=== PATIENT | female | born 2000 | race African-American/Black ===

== ENCOUNTER 2023-03-02 03:18 | Emergency (ER) | payer OTHER, SELFPAY ==
--- NOTE | ~2023-03-02 | US_ITS ---
EXAMINATION: US PELVIS CLINICAL INFORMATION: Pelvic pain, menorrhagia The patient reports bleeding on and off since July 2022 COMPARISON: None available. TECHNIQUE: Ultrasound of the pelvis is performed using both transabdominal and transvaginal transducers along with Doppler. Transvaginal imaging is performed due to inadequate visualization transabdominally. FINDINGS: Uterus: The uterus is anteverted and measures 8.8 x 4.0 x 4.8 cm. The myometrium is heterogeneous and hyperemic. The endometrial thickness is 0.6 mm. Adnexa: Both ovaries are visualized. There is normal color flow to the adnexa. There is no ovarian torsion. There is no pelvic ascites or fluid collection. Right ovary measures 5.5 x 2.2 x 3.8 cm. Volume 23.2 mL Left ovary measures 3.8 x 2.0 x 2.6 cm. Volume 10.4 mL. Several subcentimeter peripheral follicles are noted. US/US pelvic and transvaginal IMPRESSION: 1. The myometrium is heterogeneous and hyperemic. 2. Bilaterally enlarged ovaries with several subcentimeter peripheral follicles noted in the left ovary. These findings raise concern regarding polycystic ovary syndrome.
[2023-03-02 03:22] VITALS: BP 147/76; PULSE 61; RESP 18; TEMP 36.1; O2SAT 98; BMI 30.3
[2023-03-02 04:16] LABS: Hematocrit 32.4 % (37.0-47.0); Hemoglobin 10.5 g/dl (12.0-16.0); Mean Corpuscular HGB Conc 32.4 g/dl (31.0-35.0); Mean Corpuscular Hemoglobin 32.5 pg (27.0-33.0); Mean Corpuscular Volume 100.3 fL (80.0-98.0); Mean Platelet Volume 9.1 fL (9.4-12.3); Platelet Count 289 X10*3/uL (160-400); Red Blood Count 3.23 X10*6/uL (4.20-5.50); Red Cell Distribution Width 13.2 % (11.0-16.0); White Blood Count 11.3 X10*3/uL (4.8-10.8)
[2023-03-02 04:33] LABS: Alanine Aminotransferase 12 U/L (0-31); Alkaline Phosphatase 49 U/L (39-117); Anion Gap 11 (12-20); Aspartate Amino Transferase 13 U/L (5-31); Bilirubin Total 0.3 mg/dL (0.0-1.0); Blood Urea Nitrogen 7 mg/dL (9-16); Carbon Dioxide 21 mmol/L (22-29); Chloride 110 mmol/L (96-108); Estimated Glomerular Filt Rate > 60; Glucose Random 110 mg/dL (60-115); Lipase 13 U/L (8-78); Potassium 3.4 mmol/L (3.3-5.1); Sodium 139 mmol/L (135-145); Total Protein 7.6 g/dL (6.5-8.0)
[2023-03-02 06:02] VITALS: BP 128/69; PULSE 88; RESP 14; TEMP 36.9; O2SAT 100
[2023-03-02 06:11] LABS: Appearance Urine Cloudy; Color Urine Yellow; Glucose Urine UA Negative (Negative); Leukocyte Esterase Urine Large (3+) (Negative); Nitrite Urine Negative (Negative); Specific Gravity - Urine >= 1.030 (1.005-1.025); UMIC TRIGGER UACC YES; Urine Blood Large (3+) (Negative); Urine Ketones Trace mg/dL (Negative); Urine Protein 100 (2+) mg/dL (Neg-Trace)
[2023-03-02 06:12] LABS: UPreg QC Valid YES; Urine Pregnancy NEGATIVE (NEGATIVE)
[2023-03-02 06:16] LABS: Bacteria Urine Trace (None Seen); Hyaline Casts Urine 0-2 /LPF (0-2); RBC Urine >20 /HPF (0-2); Squamous Epithelial Cell Urine 0-2 /HPF (0-2); UACC Culture Trigger YES; WBC Urine >50 /HPF (0-5)
[2023-03-02 07:03] VITALS: BP 118/76; PULSE 81; RESP 12; TEMP 36.8; O2SAT 99
[2023-03-02] MEDS: Acetaminophen 325 MG TABLET 975 MG PO (07:53)
[2023-03-02] MEDS: Ibuprofen 400 MG TABLET PO (07:53)
--- NOTE | 2023-03-02 08:59 | ED_ITS ---
HPI - Abdominal Pain General Chief Complaint: Abdominal Pain Stated Complaint: Pelvic pain Time Seen by Provider: 03/02/23 07:07 Source: patient Mode of arrival: ambulatory History of Present Illness HPI narrative: 23-year-old female who reports vaginal bleeding since July and is currently on her menstrual cycle and has been followed by Gynecology at [facility]. She states that she has always had heavy. She denies any dizziness/headache/shortness of breath your heart palpitations. Patient states she has an up-to-date pelvic exam and was recently on 2 months of control, but she states the did not help at all and she stopped the control 2 days ago. Related Data Allergies Allergy/AdvReac Type Severity Reaction Status Date / Time Seasonal Allergies AdvReac Itching Verified 03/02/23 03:26 Review of Systems Review of Systems Pertinent positives and negatives as stated in HPI PMFSH Past Medical History Source: nursing notes reviewed Social History Social History Smoked in Last 30 Days: No Use of substances other than those prescribed or required for medical reasons: No Substance Use Type: Marijuana Advance Directives: No Advance Directives Information Provided: Yes Patient : No Physical Exam ED Vital Signs: Vital Signs - 24 hr 03/02/23 03:22 03/02/23 06:02 03/02/23 07:03 Temperature 97.0 F 98.5 F 98.2 F Pulse Rate 61 88 81 Respiratory Rate 18 14 12 Blood Pressure 147/76 H 128/69 118/76 Pulse Oximetry 98 100 99 Oxygen Delivery Method Room Air Room Air Room Air BMI result Body Mass Index 30.3 VITAL SIGNS: Reviewed. GENERAL: Well developed, well nourished, in no acute distress. HEAD: Normocephalic/atraumatic EYES: PERRLA, EOMI EARS: Ext canals without abnormality NOSE: Nares patent bilateral OROPHARYNX: no oral lesions noted, posterior pharynx clear NECK: Supple, no adenopathy LUNGS: Normal breath sounds. No adventitious sounds or accessory muscle use. SpO2<99> CARDIOVASCULAR: Regular rate and rhythm without noted murmurs ABDOMEN: Soft, non-tender, non-distended with bowel sounds. MUSCULOSKELETAL: No tenderness, deformities, or effusions noted on gross inspection. EXTREMITIES: No cyanosis, clubbing or edema. SKIN: Inspection of the skin reveals no rashes NEUROLOGIC: Alert and oriented x 4. Strength and sensation to light touch were grossly intact x 4. Medical Decision Making Medical Decision Making [facility] Narrative: 23-year-old female with history and clinical presentation, DX: Menorrhagia, fibroids, dysmenorrhea, ectopic, urinary tract infection. I reviewed all investigations and there is a stress leukocytosis, no thrombocytopenia the macrocytic anemia. Chemistry indices do not demonstrates MARIBETH and there is no electrolyte/liver enzyme derangements. Urinalysis is reflective of patient's current menstrual cycle. Urine is negative. Ultrasound demonstrates a heterogeneous and hyperemic findings and suspicion of PCOS, otherwise no mention of fibroids. There is also the possibility that patient may have a component of endometriosis. My interpretation is that patient is experiencing menorrhagia and will be given a referral to both hematology for further evaluation of hematologic studies as well as a referral to Gynecology but she has been informed that these also require additional primary care provider referrals for completion. She is asymptomatic for the anemia and has been provided with combination analgesics for pain control. Differential Diagnosis Differential Diagnoses: The differential diagnosis associated with the presentation includes Please see the discussion above Admission/Observation Consideration of admission/observation: Escalation of care including admission/observation considered Please see the discussion above Lab Data [facility] Lab Attestation statement: I reviewed the patient's lab results. Please see the discussion above 03/02/23 04:07 03/02/23 04:07 Labs: Lab Results 03/02/23 03/02/23 Range/Units 04:07 06:05 WBC 11.3 H (4.8-10.8) X10*3/uL RBC 3.23 L (4.20-5.50) X10*6/uL Hgb 10.5 L (12.0-16.0) g/dl Hct 32.4 L (37.0-47.0) % MCV 100.3 H (80.0-98.0) fL MCH 32.5 (27.0-33.0) pg MCHC 32.4 (31.0-35.0) g/dl RDW 13.2 (11.0-16.0) % Plt Count 289 (160-400) X10*3/uL MPV 9.1 L (9.4-12.3) fL Absolute Nucleated RBC 0.000 (0.0-0.012) X10*3/uL Nucleated RBC % (auto) 0.0 (0.0-0.2) /100WBC Sodium 139 (135-145) mmol/L Potassium 3.4 (3.3-5.1) mmol/L Chloride 110 H (96-108) mmol/L Carbon Dioxide 21 L (22-29) mmol/L Anion Gap 11 L (12-20) BUN 7 L (9-16) mg/dL Creatinine 0.78 (0.5-1.4) mg/dL Estim Creat Clear Calc 120.0 Estimated GFR > 60 Random Glucose 110 (60-115) mg/dL Calcium 9.0 (8.4-10.2) mg/dL Total Bilirubin 0.3 (0.0-1.0) mg/dL AST 13 (5-31) U/L ALT 12 (0-31) U/L Alkaline Phosphatase 49 (39-117) U/L Total Protein 7.6 (6.5-8.0) g/dL Albumin 4.0 (3.5-5.0) g/dL Lipase 13 (8-78) U/L Urine Color Yellow Urine Appearance Cloudy Urine pH 6.0 (5.0-9.0) Ur Specific [place] >= 1.030 H (1.005-1.025) Urine Protein 100 (2+) H (Neg-Trace) mg/dL Urine Glucose (UA) Negative (Negative) mg/dL Urine Ketones Trace (Negative) mg/dL Urine Blood Large (3+) H (Negative) Urine Nitrite Negative (Negative) Ur Leukocyte Esterase Large (3+) H (Negative) Urine RBC >20 H (0-2) /HPF Urine WBC >50 H (0-5) /HPF Ur Squamous Epith Cells 0-2 (0-2) /HPF Urine Bacteria Trace (None Seen) Hyaline Casts 0-2 (0-2) /LPF Urine Test NEGATIVE (NEGATIVE) Medications Administered Discontinued Medications Generic Name Dose Route Start Last Admin Trade Name Freq PRN Reason Stop Dose Admin Acetaminophen 975 mg 03/02/23 07:42 03/02/23 07:53 Acetaminophen 325 Mg Tablet PO 03/02/23 07:43 975 mg ONCE ONE Administration Ibuprofen 400 mg 03/02/23 07:42 03/02/23 07:53 Ibuprofen 400 Mg Tablet PO 03/02/23 07:43 400 mg ONCE ONE Administration Critical Care Time Critical Care Time Critical Care Time: Yes Total Critical Care Time: 30 Attestation: I personally attest to this time spent taking care of the patient. Discharge Plan Discharge Clinical Impression: Menorrhagia, Dysmenorrhea, Anemia, macrocytic Patient Disposition: Home, Self-Care Instructions: Dysfunctional Uterine Bleeding (ED), Dysmenorrhea (ED), Menorrhagia (ED), Anemia (ED) Additional Instructions: 1. Recommend [id number] Tylenol/ibuprofen as needed for pain control. 2. You have been provided with a referral to Hematology for further evaluation of your anemia studies, you have also been given a referral to gynecology. You will need to get a primary care provider referral on top of these referrals. Please give the office is a call because they may still give you an appointment even if you do not have a primary care provider referral. Return to the ER for any worsening of your symptoms. Referrals: Yaneth Anderson MD [Physician] - Christiano Denise MD [Physician] -
[2023-03-02 09:43] LABS: Iron 12 mcg/dL (30-160); Percent Iron Saturation 6 % (15-50); Total Iron Binding Capacity 218 mcg/dL (228-428); Unsaturated Iron Binding 206 ug/dL
== END 2023-03-02 09:39 | disposition home or self-care (01) ==
PROVIDERS: Emergency Provider Student in an Organized Health Care Education/Training Program
DX: N92.0 Excessive and frequent menstruation with regular cycle (principal); N94.6 Dysmenorrhea, unspecified; D53.9 Nutritional anemia, unspecified; R10.2 Pelvic and perineal pain
CPT/HCPCS: 36415; 76830; 76856; 80053; 81001; 81025; 83540; 83690; 85027; 87086; 87147; 99284

== ENCOUNTER 2024-06-03 08:14 | Emergency (ER) | payer OTHER, SELFPAY ==
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
[2024-06-03 08:18] VITALS: BP 132/76; PULSE 104; RESP 20; TEMP 36.7; O2SAT 98; BMI 30.7
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
[2024-06-03] MEDS: Acetaminophen 325 MG TABLET 650 MG PO (09:34)
[2024-06-03 09:45] LABS: Appearance Urine Cloudy; Color Urine Yellow; Glucose Urine UA Negative (Negative); Leukocyte Esterase Urine Negative (Negative); Nitrite Urine Negative (Negative); PH 5.5 (5.0-9.0); Specific Gravity - Urine 1.025 (1.005-1.025); Urine Blood Negative (Negative); Urine Ketones Negative (Negative); Urine Protein Trace mg/dL (Neg-Trace)
[2024-06-03 09:50] LABS: UPreg QC Valid YES; Urine Pregnancy NEGATIVE (NEGATIVE)
[2024-06-03 09:58] LABS: Bacteria Urine Trace (None Seen); Hyaline Casts Urine 0-2 /LPF (0-2); RBC Urine 0-2 /HPF (0-2); UACC Culture Trigger YES
[2024-06-03 12:16] VITALS: BP 128/78; PULSE 100; RESP 16; TEMP 36.7; O2SAT 96
[2024-06-03 12:18] VITALS: BP 128/78; PULSE 100; RESP 16; TEMP 36.7; O2SAT 96
== END 2024-06-03 12:18 | disposition home or self-care (01) ==
PROVIDERS: Registered Nurse Emergency; Emergency Provider Emergency Medicine
DX: S09.90XA Unspecified injury of head, initial encounter (principal); S60.051A Contusion of right little finger without damage to nail, initial encounter; S50.01XA Contusion of right elbow, initial encounter; Y04.2XXA Assault by strike against or bumped into by another person, initial encounter; H92.02 Otalgia, left ear; M25.521 Pain in right elbow; M25.562 Pain in left knee; M25.561 Pain in right knee; R51.9 Headache, unspecified; Y93.89 Activity, other specified; Y92.414 Local residential or business street as the place of occurrence of the external cause; Y99.9 Unspecified external cause status
CPT/HCPCS: 70450; 70486; 72125; 73070; 73140; 73564; 81001; 81025; 87086; 99284

== ENCOUNTER → 2024-06-03 09:15 | Outpatient (BNV) | payer OTHER, SELFPAY | PROVIDERS: Emergency Provider Emergency Medicine; Visit Provider Radiology Diagnostic Radiology | DX: S80.01XA Contusion of right knee, initial encounter (principal); S80.02XA Contusion of left knee, initial encounter; S50.02XA Contusion of left elbow, initial encounter; S60.00XA Contusion of unspecified finger without damage to nail, initial encounter; S00.93XA Contusion of unspecified part of head, initial encounter | CPT/HCPCS: 70450; 70486; 72125; 73070; 73140; 73564 ==

== ENCOUNTER 2024-06-26 12:09 | Emergency (ER) | payer OTHER, SELFPAY ==
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
[2024-06-26 12:17] VITALS: BP 145/89; PULSE 80; RESP 16; TEMP 36.6; O2SAT 100; BMI 29.0
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
== END 2024-06-26 20:42 | disposition left against medical advice (07) ==
PROVIDERS: Emergency Provider Emergency Medicine
DX: Z04.1 Encounter for examination and observation following transport accident (principal); M25.561 Pain in right knee; R07.9 Chest pain, unspecified; G43.909 Migraine, unspecified, not intractable, without status migrainosus
CPT/HCPCS: 70450; 71046; 72125; 73562; 99281; 99284

== ENCOUNTER → 2024-06-26 12:19 | Outpatient (BNV) | payer OTHER, SELFPAY | PROVIDERS: Visit Provider Radiology Diagnostic Radiology | DX: M25.561 Pain in right knee (principal); R07.9 Chest pain, unspecified; R51.9 Headache, unspecified | CPT/HCPCS: 70450; 71046; 72125; 73562 ==

== ENCOUNTER 2025-02-27 09:42 | Emergency (ER) | payer OTHER, SELFPAY ==
--- NOTE | ~2025-02-27 | US_ITS ---
EXAMINATION: US PELVIS CLINICAL INFORMATION: Pelvic pain. Abnormal uterine bleeding. COMPARISON: Previous pelvic ultrasound February 2023 TECHNIQUE: Ultrasound of the pelvis is performed using both transabdominal and transvaginal transducers along with Doppler. Transvaginal imaging is performed due to inadequate visualization transabdominally. Doppler and color evaluation of the ovarian vessels with waveform spectral analysis. FINDINGS: Uterus: The uterus is anteverted and measures 7.6 x 3.6 x 4.1 cm. The double wall endometrial thickness is 3 mm. No endometrial fluid or mass. The uterus is smooth in contour and has normal myometrial echogenicity. No visible fibroid. Adnexa: Both ovaries are visualized. There is normal color flow to the adnexa. There is no ovarian torsion. Small amount of ascites. Right ovary measures 4.8 x 2.9 x 2.8 cm. Slightly enlarged with multiple small simple cysts or follicles/ polycystic appearance. Left ovary measures 5.1 x 2.8 x 3 cm. Slightly enlarged with multiple small simple cysts or follicles/ polycystic appearance. US/US pelvic and transvaginal IMPRESSION: Polycystic appearance of the ovaries. No evidence of torsion. Small amount of fluid in the pelvis. Normal-appearing uterus and endometrium. Electronically signed by: Parisa Antonio MD 02/27/2025 12:09 PM [facility]
--- NOTE | ~2025-02-27 | US_ITS ---
EXAMINATION: US PELVIS CLINICAL INFORMATION: Pelvic pain. Abnormal uterine bleeding. COMPARISON: Previous pelvic ultrasound February 2023 TECHNIQUE: Ultrasound of the pelvis is performed using both transabdominal and transvaginal transducers along with Doppler. Transvaginal imaging is performed due to inadequate visualization transabdominally. Doppler and color evaluation of the ovarian vessels with waveform spectral analysis. FINDINGS: Uterus: The uterus is anteverted and measures 7.6 x 3.6 x 4.1 cm. The double wall endometrial thickness is 3 mm. No endometrial fluid or mass. The uterus is smooth in contour and has normal myometrial echogenicity. No visible fibroid. Adnexa: Both ovaries are visualized. There is normal color flow to the adnexa. There is no ovarian torsion. Small amount of ascites. Right ovary measures 4.8 x 2.9 x 2.8 cm. Slightly enlarged with multiple small simple cysts or follicles/ polycystic appearance. Left ovary measures 5.1 x 2.8 x 3 cm. Slightly enlarged with multiple small simple cysts or follicles/ polycystic appearance. US/US pelvic ovarian doppler IMPRESSION: Polycystic appearance of the ovaries. No evidence of torsion. Small amount of fluid in the pelvis. Normal-appearing uterus and endometrium. Electronically signed by: Parisa Antonio MD 02/27/2025 12:09 PM [facility]
[2025-02-27 09:44] VITALS: BP 131/73; PULSE 86; RESP 20; TEMP 36.1; O2SAT 99; BMI 36.3
[2025-02-27 10:02] LABS: MANUAL DIFF FLAG NO
[2025-02-27 10:03] LABS: Hematocrit 34.4 % (37.0-47.0); Hemoglobin 11.3 g/dl (12.0-16.0); Imm Gran Abs Auto 0.02 X10*3/uL (0.00-0.03); Imm Gran Pct Auto 0.3 % (0.0-0.4); Lymphocytes Absolute Auto 1.9 X10*3/uL (1.2-4.9); Mean Corpuscular HGB Conc 32.8 g/dl (31.0-35.0); Mean Corpuscular Hemoglobin 34.3 pg (27.0-33.0); Mean Corpuscular Volume 104.6 fL (80.0-98.0); NRBC Abs Auto 0.000 X10*3/uL (0.0-0.012); NRBC Pct Auto 0.0 /100WBC (0.0-0.2); Platelet Count 306 X10*3/uL (160-400); Red Blood Count 3.29 X10*6/uL (4.20-5.50); White Blood Count 7.4 X10*3/uL (4.8-10.8)
--- NOTE | 2025-02-27 10:04 | PC.NURSE ---
patient a&ox3, vss, pt c/o 12/03 low abd/pelvic pain, labs drawn, pt awaiting provider evaluation, call rollins within reach, plan of care ongoing
[2025-02-27 10:32] LABS: Alanine Aminotransferase 12 U/L (0-31); Albumin Level 4.3 g/dL (3.5-5.0); Alkaline Phosphatase 65 U/L (39-117); Anion Gap 9 (12-20); Aspartate Amino Transferase 19 U/L (5-31); Blood Urea Nitrogen 9 mg/dL (9-16); Calcium 8.7 mg/dL (8.4-10.2); Carbon Dioxide 25 mmol/L (22-29); Chloride 109 mmol/L (96-108); Creatinine Clr Calc Pharmacy 160.4; Estimated Glomerular Filt Rate > 60; Lipase 14 U/L (8-78); Potassium 3.7 mmol/L (3.3-5.1); Sodium 139 mmol/L (135-145); Total Protein 7.1 g/dL (6.5-8.0)
--- OUTSIDE RECORDS SUMMARY | 2025-02-27 11:54 | XMS_ITS | Clinical Summary ---
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 Name Role Phone Unavailable Primary Care Provider Unavailabl e Social History Tobacco Use Types Packs/Day Years Used Date Smoking Tobacco: Never Assessed Comments Unknown Sex and Gender Information Value Date Recorded Sex Assigned at Not on file Legal Sex Female 3:42 PM EDT Gender Identity Not on file Sexual Orientation Not on file Plan of Treatment Health Maintenance Due Date Last Done Comments Gonorrhea/Chlamydia Screening 2001 HPV Vaccines (1 - 3-dose series) 01/24/2016 DTaP,Tdap,and Td Vaccines (1 - Tdap) 01/24/2020 Hepatitis B Vaccines (1 of 3 - 19+ 3-dose series) 01/24/2020 Cervical Cancer Screening: P ap Smear 2022 HIV Screening 02/03/2024 Hepatitis C Screening 02/03/2024 Social Influencers of Health Screening 02/03/2024 Depression Screening 04/26/2024 COVID-19 Vaccine (1 - 2023-2 5 season) 2024 Influenza Vaccine (#1) 2024 RSV Immunization Adult Patie nts (1 - 1-dose 75+ series) 01/24/2076 HIB Vaccines Aged Out No longer eligi ble based on patient's age to complete this topic Hepatitis A Vaccines Aged Out No long er eligible based on patient's age to complete this topic IPV Vaccines Aged Out No longer eligi ble based on patient's age to complete this topic MMR Vaccines Aged Out No longer eligi ble based on patient's age to complete this topic Meningococcal ACWY Vaccine Aged Out N o longer eligible based on patient's age to complete this topic Meningococcal B Vaccine Aged Out No l onger eligible based on patient's age to complete this topic Pneumococcal Vaccine: Pediat rics (0 to 5 Years) and At-Risk Patients (6 to 49 Years) Aged Out No longer eligible b ased on patient's age to complete this topic RSV Immunization Patients Un daysi 20 months Aged Out No longer eligible b ased on patient's age to complete this topic Varicella Vaccines Aged Out No longer eligible based on patient's age to complete this topic
--- NOTE | 2025-02-27 12:25 | ED_ITS ---
HPI - General Chief complaint: Vaginal Bleeding Stated complaint: Abd pain Time Seen by Provider: 02/27/25 10:12 Source: patient and RN notes reviewed Mode of arrival: ambulatory Limitations: no limitations History of Present Illness ED Provider: Mary Carmen Claire PA-C HPI Narrative: This is a 25-year-old female, with a past medical history of abnormal uterine bleeding, who presents emergency department with concerns of vaginal bleeding for the last 3 weeks. Patient states that she has been wearing always pull up adult diapers, going through 3 of them per day, as well as ultra tampons proximally 4-5 per day, and she states that she is often times soaking through them. Patient states that she has a history of abnormal uterine bleeding, however she states that she is unsure what to do as her menses have not stopped. She endorses some hot flashes. She does report [facility], however she does not have a current Ob as of yet. She states that she had an a regular Pap last year, and has a scheduled repeat for March 13. She is not currently sexually active however recently split with her partner several weeks ago. She does endorse some abnormal vaginal discharge which started 2 weeks ago, yellow in color. She denies any fevers, chills, nausea, vomiting, diarrhea. No urinary symptoms. Related Data Previous Rx's ?Medication ?Instructions ?Recorded cyclobenzaprine 10 mg tablet 10 mg PO TID PRN muscle s pasm #10 06/03/24 tabs ibuprofen 600 mg tablet 600 mg PO TID PRN pain #20 t abs 06/03/24 lidocaine 5 % topical patch 1 patch topical DAILY #15 ea 06/03/24 Allergies Allergy/AdvReac Type Severity Reaction Status Date / Time Seasonal Allergies AdvReac Itching Verified 02/27/25 09:47 [facility] Social History Social History Alcohol intake: current Alcohol intake frequency: a few times a month Smoked in Last 30 Days: No Use of substances other than those prescribed or required for medical reasons: No Substance Use Type: Marijuana Advance Directives: No Advance Directives Information Provided: No Do you have a plan to hurt others: No Plan Patient : No Physical Exam 2 Vital Signs: Vital Signs: Last Vital Signs Temp 97.7 F 02/27/25 13:00 Pulse 66 02/27/25 13:00 Resp 17 02/27/25 13:00 BP 121/67 02/27/25 13:00 Pulse Ox 98 02/27/25 13:00 O2 Del Method Room Air 02/27/25 13:00 BMI result Body Mass Index 36.3 Medications Administered Discontinued Medications Generic Name Dose Route Start Last Admin Trade Name Garciaq PRN Reason Stop Dose Admin Ketorolac Tromethamine 15 mg 02/27/25 13:24 02/27/25 13:49 Ketorolac Tromethamine 15 Mg/Ml Vial IM 02/27/25 13:25 15 mg ONCE ONE Administration Medical Decision Making Lab Data 02/27/25 09:57 02/27/25 09:57 Labs: Lab Results 02/27/25 02/27/25 Range/Units 09:57 12:20 WBC 7.4 (4.8-10.8) X10*3/uL RBC 3.29 L (4.20-5.50) X10*6/uL Hgb 11.3 L (12.0-16.0) g/dl Hct 34.4 L (37.0-47.0) % MCV 104.6 H (80.0-98.0) fL MCH 34.3 H (27.0-33.0) pg MCHC 32.8 (31.0-35.0) g/dl RDW 13.0 (11.0-16.0) % Plt Count 306 (160-400) X10*3/uL MPV 8.9 L (9.4-12.3) fL Immature Gran % (Auto) 0.3 (0.0-0.4) % Neut % (Auto) 67.6 (45-73) % Lymph % (Auto) 25.0 (20-40) % Clarke % (Auto) 5.1 (2-11) % Eos % (Auto) 1.7 (0-4) % Baso % (Auto) 0.3 (0-2) % Lymph # (Auto) 1.9 (1.2-4.9) X10*3/uL Clarke # (Auto) 0.4 (0.1-1.2) X10*3/uL Eos # (Auto) 0.1 (0.0-0.4) X10*3/uL Baso # (Auto) 0.0 (0.0-0.2) X10*3/uL Abs Immat Gran (auto) 0.02 (0.00-0.03) X10*3/uL Absolute Neuts (auto) 5.0 (2.0-8.3) x10*3/uL Absolute Nucleated RBC 0.000 (0.0-0.012) X10*3/uL Nucleated RBC % (auto) 0.0 (0.0-0.2) /100WBC Sodium 139 (135-145) mmol/L Potassium 3.7 (3.3-5.1) mmol/L Chloride 109 H (96-108) mmol/L Carbon Dioxide 25 (22-29) mmol/L Anion Gap 9 L (12-20) BUN 9 (9-16) mg/dL Creatinine 0.63 (0.5-1.4) mg/dL Estim Creat Clear Calc 160.4 Estimated GFR > 60 Random Glucose 104 (60-115) mg/dL Calcium 8.7 (8.4-10.2) mg/dL Total Bilirubin 0.4 (0.0-1.0) mg/dL Direct Bilirubin 0.2 (0.0-0.5) mg/dL AST 19 (5-31) U/L ALT 12 (0-31) U/L Alkaline Phosphatase 65 (39-117) U/L Total Protein 7.1 (6.5-8.0) g/dL Albumin 4.3 (3.5-5.0) g/dL Lipase 14 (8-78) U/L Beta HCG, Quant < 2 mIU/mL Urine Color RED Urine Appearance Cloudy Urine pH 6.0 (5.0-9.0) Ur Specific [place] 1.025 (1.005-1.025) Urine Protein 30 (1+) H (Neg-Trace) mg/dL Urine Glucose (UA) Negative (Negative) mg/dL Urine Ketones Negative (Negative) mg/dL Urine Blood Large (3+) H (Negative) Urine Nitrite Negative (Negative) Ur Leukocyte Esterase Negative (Negative) Urine RBC >20 H (0-2) /HPF Urine WBC 0-5 (0-5) /HPF Ur Squamous Epith Cells 3-5 (0-2) /HPF Urine Bacteria None Seen (None Seen) Hyaline Casts 0-2 (0-2) /LPF Discharge Plan Discharge Prescriptions: No Action cyclobenzaprine 10 mg tablet 10 mg PO TID PRN (Reason: muscle spasm) Qty: 10 0RF ibuprofen 600 mg tablet 600 mg PO TID PRN (Reason: pain) Qty: 20 0RF lidocaine 5 % adhesive patch,medicated 1 patch topical DAILY Qty: 15 0RF Rx Instructions: leave on most painful area for up to 12 hrs Print Language: Latvian
[2025-02-27 12:37] LABS: Appearance Urine Cloudy; Glucose Urine UA Negative (Negative); PH 6.0 (5.0-9.0); UMIC TRIGGER UACC YES
[2025-02-27 12:44] LABS: Specific Gravity - Urine 1.025 (1.005-1.025)
[2025-02-27 13:00] VITALS: BP 121/67; PULSE 66; RESP 17; TEMP 36.5; O2SAT 98
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
[2025-02-27 14:05] LABS: Bacterial Vaginosis PCR POSITIVE (Negative); Candida Group PCR NOT DETECTED (Not Detect); Candida glab krusei PCR NOT DETECTED (Not Detect); Trichomonas vaginalis PCR DETECTED (Not Detect)
--- NOTE | 2025-02-27 14:07 | ED.FEMALEGU ---
HPI - Female Genitourinary General Chief complaint: Vaginal Bleeding Stated complaint: Abd pain Time Seen by Provider: 02/27/25 10:12 Source: patient and RN notes reviewed Mode of arrival: ambulatory Limitations: no limitations History of Present Illness ED Provider: Mary Carmen Claire PA-C HPI Narrative: This is a 25-year-old female, with a past medical history of abnormal uterine bleeding, who presents emergency department with concerns of vaginal bleeding for the last 3 weeks. Patient states that she has been wearing always pull up adult diapers, going through 3 of them per day, as well as ultra tampons proximally 4-5 per day, and she states that she is often times soaking through them. Patient states that she has a history of abnormal uterine bleeding, however she states that she is unsure what to do as her menses have not stopped. She endorses some hot flashes. She does report that she has been receiving OB care through [facility], however she does not have a current Ob as of yet. She states that she had an irregular Pap last year, and has a scheduled repeat for March 13 at [facility]. She is not currently sexually active however recently split with her partner several weeks ago. She does endorse some abnormal vaginal discharge which started 2 weeks ago, yellow in color. She denies any fevers, chills, nausea, vomiting, diarrhea. No urinary symptoms. No chest pain, SOB, or dizziness. No other complaints or concerns at this time. MD elicited complaint: vaginal bleeding Onset (ago): week(s) Location of symptoms: suprapubic Severity: moderate Female Urogenital Radiation: Suprapubic Quality of pain: cramping Consistency: constant Vaginal discharge: yellow Vaginal bleeding: heavy, # pads per day (4) and other (4-5 ultra tampons per day ) Exacerbating factors: none Relieving factors: none Associated symptoms: denies other symptoms Treatment prior to arrival: none Sexual activity: No Patient : No Related Data Previous Rx's ?Medication ?Instructions ?Recorded cyclobenzaprine 10 mg tablet 10 mg PO TID PRN muscle spasm #10 06/03/24 tabs ibuprofen 600 mg tablet 600 mg PO TID PRN pain #20 tabs 06/03/24 lidocaine 5 % topical patch 1 patch topical DAILY #15 ea 06/03/24 medroxyprogesterone 10 mg tablet 10 mg PO DAILY #90 tabs 02/27/25 (Provera) metronidazole 500 mg tablet 500 mg PO BID 7 days #13 tabs 02/27/25 Allergies Allergy/AdvReac Type Severity Reaction Status Date / Time Seasonal Allergies AdvReac Itching Verified 02/27/25 09:47 Review of Systems Review of Systems: Constitutional : No Fever, No Chills ENT/Mouth : No sore throat, No Rhinorrhea Eyes: No Eye Pain, No Swelling, No Redness Cardiovascular : No Chest Pain, No SOB Respiratory : No Cough, No Sputum Gastrointestinal : No Nausea, No Vomiting, No Diarrhea, No abdominal Pain Genitourinary : No Dysuria, No Hematuria Musculoskeletal : No joint pain, No Myalgias, No Joint Swelling Skin : No Skin Lesions Neuro : No Weakness, No Numbness, No Headache All other systems reviewed and are negative Yes all other systems are reviewed and are negative Constitutional: Constitutional: Reports as per [facility] Social History Social History Alcohol intake: current Alcohol intake frequency: a few times a month Substance Use Type: Marijuana Physical Exam Vital Signs: Vital Signs: Last Vital Signs Temp 97.7 F 02/27/25 13:00 Pulse 66 02/27/25 13:00 Resp 17 02/27/25 13:00 BP 121/67 02/27/25 13:00 Pulse Ox 98 02/27/25 13:00 O2 Del Method Room Air 02/27/25 13:00 BMI result Body Mass Index 36.3 Const: General: cooperative, comfortable and no acute distress Orientation/consciousness: patient oriented x3 Limitations: no limitations HEENT: Head: Yes normal to inspection, Yes normocephalic and Yes atraumatic Ears: hearing grossly normal bilaterally General nose exam: Normal external nose present Face and sinus: Yes normal facial exam Mouth: Normal oral and palatal mucosa present, oropharynx normal and moist mucous membranes Throat: Yes posterior oropharynx normal Eyes: General: appearance normal, both eyes and all related structures Eyelids: Yes eyelids normal Conjunctivae: conjunctivae normal Sclerae: sclerae normal Pupils: Equal, round and reactive pupils present EOM: EOMs intact bilaterally Neck: Neck: Yes normal visual inspection, Yes full ROM and Yes no lymphadenopathy Lymphatic: no lymphadenopathy noted Chest: Chest palpation & inspection: normal inspection of the chest Resp: Effort & Inspection: normal respiratory effort and able to speak in complete sentences Auscultation: clear to auscultation bilaterally, no crackles, no rales, no rhonchi and no wheezes Cardio: Rate: regular rate Rhythm: regular rhythm Heart sounds: S1 normal heart sound present and S2 normal heart sound present GI: Inspection: Yes normal to inspection : Other: Pelvic examination performed, patient with small amount of bright red blood in vaginal canal, no evidence of hemorrhage. No clots cervical os is closed. No cervical motion tenderness. Speculum Exam - Vagina: normal appearance of the vagina Speculum Exam - Cervix: normal appearance of the cervix Skin: General skin exam: no rashes or lesions noted Trauma: no lacerations or abrasions Wounds: no wounds Neuro: General: patient oriented x3 and moves all extremities Cranial nerves: Yes Equal, round and reactive pupils present Extrem: General: Yes normal to inspection Right upper extremity: normal to inspection Left upper extremity: normal to inspection Right lower extremity: normal to inspection Left lower extremity: normal to inspection Medications Administered Discontinued Medications Generic Name Dose Route Start Last Admin Trade Name Freq PRN Reason Stop Dose Admin Ketorolac Tromethamine 15 mg 02/27/25 13:24 02/27/25 13:49 Ketorolac Tromethamine 15 Mg/Ml Vial IM 02/27/25 13:25 15 mg ONCE ONE Administration Medroxyprogesterone Acetate 10 mg 02/27/25 14:46 02/27/25 15:54 Medroxyprogesterone Acetate 5 Mg Tablet PO 02/27/25 14:47 Not Given ONCE ONE Metronidazole 500 mg 02/27/25 14:46 02/27/25 15:08 Metronidazole 500 Mg Tablet PO 02/27/25 14:47 500 mg ONCE ONE Administration Medical Decision Making Medical Decision Making [facility] Narrative: This is a 25-year-old female, with a past medical history of abnormal uterine bleeding, who presents emergency department with concerns of vaginal bleeding for the last 3 weeks. On arrival, vital signs within normal limits. She is speaking full sentences under no acute distress. Differential diagnoses include abnormal uterine bleeding, , endometriosis, PCOS, ovarian torsion. Will obtain labs, ultrasound, UA. 2:10 PM 02/27/2025 (Mary Carmen Claire PA-C): Pelvic examination performed, no active hemorrhage, no blood clots within the vaginal vault. Labs returned, she has no leukocytosis, stable H&H at 11.3/34.4, chemistry revealing no significant electrolyte derangement, beta quant less than 2. Urine with proteinuria, large blood, and rbc's, does not appear to be infectious. Swabs were collected. Ultrasound revealing Polycystic appearance of the ovaries. No evidence of torsion. Small amount of fluid in the pelvis. Normal-appearing uterus and endometrium. Patient treated with Toradol 15 milligrams IM. Reached out to Dr. Denise for further recommendations. 2:30PM 02/27/2025 (Mary Carmen Claire PA-C): Dr. Denise, OBGYN recommending Provera 10mg QD #90 and to f/u in office in 2 weeks. Advised treatment for BV and trich as these came back positive - treat with flagyl 500mg BID x 7 days, GC/chlamydia negative. Advised to return with any case of persistent vagainal bleeding. and to inform paratners, refrain from intercourse for 1 week after both partners are treated, and recommending other STD screening including HIV, RPR, hep b s AG, Hep C Ab and schedule test of cure appt in few weeks in the office. We are unable to routinely screen for other additional testing in the ED, therefore pt was recommended to follow up at [facility] - pt states that she was just tested for these infections which were negative. Encouraged to still f/u. Pt understands and agrees with plan. Pt stable for d.c. Differential Diagnosis Differential Diagnoses: The differential diagnosis associated with the presentation includes s aabove. Admission/Observation Consideration of admission/observation: Escalation of care including admission/observation considered Lab Data [facility] Lab Attestation statement: I reviewed the patient's lab results. see [facility] 02/27/25 09:57 02/27/25 09:57 Labs: Lab Results 02/27/25 02/27/25 Range/Units 09:57 12:20 WBC 7.4 (4.8-10.8) X10*3/uL RBC 3.29 L (4.20-5.50) X10*6/uL Hgb 11.3 L (12.0-16.0) g/dl Hct 34.4 L (37.0-47.0) % MCV 104.6 H (80.0-98.0) fL MCH 34.3 H (27.0-33.0) pg MCHC 32.8 (31.0-35.0) g/dl RDW 13.0 (11.0-16.0) % Plt Count 306 (160-400) X10*3/uL MPV 8.9 L (9.4-12.3) fL Immature Gran % (Auto) 0.3 (0.0-0.4) % Neut % (Auto) 67.6 (45-73) % Lymph % (Auto) 25.0 (20-40) % [place] % (Auto) 5.1 (2-11) % Eos % (Auto) 1.7 (0-4) % Baso % (Auto) 0.3 (0-2) % Lymph # (Auto) 1.9 (1.2-4.9) X10*3/uL [place] # (Auto) 0.4 (0.1-1.2) X10*3/uL Eos # (Auto) 0.1 (0.0-0.4) X10*3/uL Baso # (Auto) 0.0 (0.0-0.2) X10*3/uL Abs Immat Gran (auto) 0.02 (0.00-0.03) X10*3/uL Absolute Neuts (auto) 5.0 (2.0-8.3) x10*3/uL Absolute Nucleated RBC 0.000 (0.0-0.012) X10*3/uL Nucleated RBC % (auto) 0.0 (0.0-0.2) /100WBC Sodium 139 (135-145) mmol/L Potassium 3.7 (3.3-5.1) mmol/L Chloride 109 H (96-108) mmol/L Carbon Dioxide 25 (22-29) mmol/L Anion Gap 9 L (12-20) BUN 9 (9-16) mg/dL Creatinine 0.63 (0.5-1.4) mg/dL Estim Creat Clear Calc 160.4 Estimated GFR > 60 Random Glucose 104 (60-115) mg/dL Calcium 8.7 (8.4-10.2) mg/dL Total Bilirubin 0.4 (0.0-1.0) mg/dL Direct Bilirubin 0.2 (0.0-0.5) mg/dL AST 19 (5-31) U/L ALT 12 (0-31) U/L Alkaline Phosphatase 65 (39-117) U/L Total Protein 7.1 (6.5-8.0) g/dL Albumin 4.3 (3.5-5.0) g/dL Lipase 14 (8-78) U/L Beta HCG, Quant < 2 mIU/mL Urine Color RED Urine Appearance Cloudy Urine pH 6.0 (5.0-9.0) Ur Specific [place] 1.025 (1.005-1.025) Urine Protein 30 (1+) H (Neg-Trace) mg/dL Urine Glucose (UA) Negative (Negative) mg/dL Urine Ketones Negative (Negative) mg/dL Urine Blood Large (3+) H (Negative) Urine Nitrite Negative (Negative) Ur Leukocyte Esterase Negative (Negative) Urine RBC >20 H (0-2) /HPF Urine WBC 0-5 (0-5) /HPF Ur Squamous Epith Cells 3-5 (0-2) /HPF Urine Bacteria None Seen (None Seen) Hyaline Casts 0-2 (0-2) /LPF Chlam trachomat DNA PCR NOT DETECTED (Not Detect.) N.gonorrhoeae DNA (PCR) NOT DETECTED (Not Detect.) T. vaginalis (PCR) DETECTED A (Not Detect) Bact vaginosis (PCR) POSITIVE A (Negative) C. krusei/glabrata (PCR) NOT DETECTED (Not Detect) Jessi group (PCR) NOT DETECTED (Not Detect) Radiology Impression Discussion of test interpretation with radiology: I have reviewed the radiologist's reading. Radiologist Impression: FINDINGS: Uterus: The uterus is anteverted and measures 7.6 x 3.6 x 4.1 cm. The double wall endometrial thickness is 3 mm. No endometrial fluid or mass. The uterus is smooth in contour and has normal myometrial echogenicity. No visible fibroid. Adnexa: Both ovaries are visualized. There is normal color flow to the adnexa. There is no ovarian torsion. Small amount of ascites. Right ovary measures 4.8 x 2.9 x 2.8 cm. Slightly enlarged with multiple small simple cysts or follicles/ polycystic appearance. Left ovary measures 5.1 x 2.8 x 3 cm. Slightly enlarged with multiple small simple cysts or follicles/ polycystic appearance. US/US pelvic ovarian doppler IMPRESSION: Polycystic appearance of the ovaries. No evidence of torsion. Small amount of fluid in the pelvis. Normal-appearing uterus and endometrium. Electronically signed by: Parisa Antonio MD 02/27/2025 12:09 PM [facility] Dictated By: Parisa Antonio MD Discharge Plan Discharge Clinical Impression: Abnormal uterine bleeding (AUB), Bacterial vaginosis, Trichomonas infection Patient Disposition: Home, Self-Care Instructions: Bacterial Vaginosis (ED), Abnormal (Dysfunctional) Uterine Bleeding (ED), Sexually Transmitted Diseases (ED), Trichomoniasis (ED) Additional Instructions: You were seen in the emergency department due to abnormal uterine bleeding. Your blood work was reassuring. For the abnormal uterine bleeding, please take Provera 10 milligrams once a day. He has follow-up with the OB office within 2 weeks. Please return back to the emergency room if vaginal bleeding is persistent despite multiple doses of this, or if you develop any worsening bleeding, dizziness, chest pain, shortness for breath. You tested positive for Trichomonas as well as bacterial vaginosis. This is a sexually transmitted infection, please contact all sexual partners in regards to this positive test as they also need to be treated. You also tested positive for bacterial vaginosis. These infections are treated with medication called Flagyl, please complete the full course of this. Do not drink alcohol while taking this medication as this can make you ill. Flagyl is to be taken twice a day for 7 days. You were given your 1st dose in the department today. You may take 2nd dose later on today. Refrain from intercourse for 1 week after you are treated. You should schedule a test of cure appointment in a few weeks in the office. You tested negative for gonorrhea and chlamydia. The OBGYN also recommends you to have testing for HIV, syphilis, hep B, and hep C. Please have these performed as we are unable to do this in the emergency room. Prescriptions: New medroxyprogesterone [Provera] 10 mg tablet 10 mg PO DAILY Qty: 90 0RF Rx Instructions: start 02/28 metronidazole 500 mg tablet 500 mg PO BID 7 Days Qty: 13 0RF No Action cyclobenzaprine 10 mg tablet 10 mg PO TID PRN (Reason: muscle spasm) Qty: 10 0RF ibuprofen 600 mg tablet 600 mg PO TID PRN (Reason: pain) Qty: 20 0RF lidocaine 5 % adhesive patch,medicated 1 patch topical DAILY Qty: 15 0RF Rx Instructions: leave on most painful area for up to 12 hrs Referrals: [facility] [place] [facility] [place] [facility] [Provider Group] Stand Alone Forms: Work/School Release Discharge Date/Time: 02/27/25 16:10 Print Language: Uzbek
--- NOTE | 2025-02-27 14:09 | PM.GYNCN ---
OPERATIONS SUPPORT COORDINATOR - CN: HPI Data of Consult Consult date: 02/27/25 Primary Care Provider: None Physician Consult Narrative Narrative: I was consulted on Sobeida Beltran who is a 25 year old female presented to emergency room complaining of vaginal bleeding of 3 weeks' duration associated passage of clots and pelvic cramping. The following workup was done in the emergency room: H and H 11.3/34.4 HCG less than 2 GC/CT pending Trichomonas positive BV positive Pelvic ultrasound showed the following: Uterus: The uterus is anteverted and measures 7.6 x 3.6 x 4.1 cm. The double wall endometrial thickness is 3 mm. No endometrial fluid or mass. The uterus is smooth in contour and has normal myometrial echogenicity. No visible fibroid. Adnexa: Both ovaries are visualized. There is normal color flow to the adnexa. There is no ovarian torsion. Small amount of ascites. Right ovary measures 4.8 x 2.9 x 2.8 cm. Slightly enlarged with multiple small simple cysts or follicles/ polycystic appearance. Left ovary measures 5.1 x 2.8 x 3 cm. Slightly enlarged with multiple small simple cysts or follicles/ polycystic appearance. cc:: CC: OB [facility] Social History Social History Alcohol intake: current Alcohol intake frequency: a few times a month Substance Use Type: Marijuana Meds Allergies Allergy/AdvReac Type Severity Reaction Status Date / Time Seasonal Allergies AdvReac Itching Verified 02/27/25 09:47 OPERATIONS SUPPORT COORDINATOR Physical Exam Vitals Vital signs: Temp Pulse Resp BP Pulse Ox O2 Del Method 97.7 F 66 17 121/67 98 Room Air 02/27/25 13:00 02/27/25 13:00 02/27/25 13:00 02/27/25 13:00 02/27/25 13:00 02/27/25 13:00 BMI result Body Mass Index 36.3 Additional Comments: Reported by CURTIS Mcgraw in the emergency room: No evidence of active bleeding, no clots, minimal amount of blood but no cervical motion tenderness OPERATIONS SUPPORT COORDINATOR - Results Labs 02/27/25 09:57 02/27/25 09:57 Labs: Short CBC 02/27/25 Range/Units 09:57 WBC 7.4 (4.8-10.8) X10*3/uL Hgb 11.3 L (12.0-16.0) g/dl Hct 34.4 L (37.0-47.0) % Plt Count 306 (160-400) X10*3/uL BMP 02/27/25 09:57 Sodium 139 Potassium 3.7 Chloride 109 H Carbon Dioxide 25 BUN 9 Creatinine 0.63 Calcium 8.7 Liver Function 02/27/25 Range/Units 09:57 Total Bilirubin 0.4 (0.0-1.0) mg/dL Direct Bilirubin 0.2 (0.0-0.5) mg/dL AST 19 (5-31) U/L ALT 12 (0-31) U/L Alkaline Phosphatase 65 (39-117) U/L Albumin 4.3 (3.5-5.0) g/dL Urine 02/27/25 Range/Units 12:20 Urine Color RED Urine Appearance Cloudy Urine pH 6.0 (5.0-9.0) Ur Specific [place] 1.025 (1.005-1.025) Urine Protein 30 (1+) H (Neg-Trace) mg/dL Urine Glucose (UA) Negative (Negative) mg/dL Assessment and Plan (1) Abnormal uterine bleeding (AUB): Status: Acute Since there is no evidence of active vaginal bleeding and H&H is reasonable, recommended to start the patient on Provera 10 mg p.o. q.d. and to send a prescription for 90 tablets with 0 refill, instructions to be given to patient to schedule a follow-up appointment in the office within few weeks and to come back to emergency room in case of persistence of heavy vaginal bleeding (2) Bacterial vaginosis: Status: Acute GC and chlamydia cultures to be checked and treat accordingly. Per CDC recommendation, will screen for STI, HepBs Ag, HIV, RPR, Hep C Ab ordered. Recommended to treat with Flagyl 500 mg p.o. b.i.d. x 7 days, Instructions given to the patient to refrain from sexual activity or to use condoms consistently and correctly during the BV treatment regimen, not to douch, it might increase the risk for relapse, and to call if symptoms persist or recur. (3) Trichomonas infection: Status: Acute Recommend Flagyl 500 mg p.o. b.i.d. for 7 days Instructions to be given to patient to: -Inform partner(s) -Refrain from intercourse for 1 week after both partners are treated, -STD?s screen, orders including HIV, RPR, Hep b s Ag, HepC Ab -Schedule ZOË appointment in few weeks. I spent a total of 20 minutes reviewing the chart, talking to the patient via video and documenting in the medical record.
[2025-02-27 14:36] LABS: CT PCR NOT DETECTED (Not Detect.); NG PCR NOT DETECTED (Not Detect.)
--- NOTE | 2025-02-27 15:08 | PC.NURSE ---
pt medicated per order pharmacy called for missing medication
--- NOTE | 2025-02-27 15:54 | PC.NURSE ---
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
== END 2025-02-27 16:10 | disposition home or self-care (01) ==
PROVIDERS: Physician Assistant Medical; Emergency Provider Emergency Medicine
DX: N93.9 Abnormal uterine and vaginal bleeding, unspecified (principal); N76.0 Acute vaginitis; B96.89 Other specified bacterial agents as the cause of diseases classified elsewhere; A59.9 Trichomoniasis, unspecified
CPT/HCPCS: 36415; 76830; 76856; 80048; 80076; 81001; 81515; 83690; 84702; 85025; 87491; 87591; 93975; 96372; 99284; J1885

== ENCOUNTER → 2025-02-27 10:10 | Outpatient (BNV) | payer OTHER, SELFPAY | PROVIDERS: Emergency Provider Emergency Medicine; Visit Provider Obstetrics & Gynecology | DX: N93.9 Abnormal uterine and vaginal bleeding, unspecified (principal); N76.0 Acute vaginitis; B96.89 Other specified bacterial agents as the cause of diseases classified elsewhere; A59.9 Trichomoniasis, unspecified | CPT/HCPCS: 99283 ==

== ENCOUNTER → 2025-02-27 11:17 | Outpatient (BNV) | payer OTHER, SELFPAY | PROVIDERS: Emergency Provider Emergency Medicine; Visit Provider Radiology Diagnostic Radiology | DX: R10.20 Pelvic and perineal pain unspecified side (principal); N93.9 Abnormal uterine and vaginal bleeding, unspecified | CPT/HCPCS: 76830; 76856; 93975 ==